=== PATIENT | male | born 2000 | race Hispanic/Latino ===

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

== ENCOUNTER 2022-06-02 23:15 | Emergency (ER) | payer OTHER, SELFPAY ==
[2022-06-02 23:24] VITALS: BP 121/66; PULSE 79; RESP 20; TEMP 37.1; O2SAT 98; BMI 22.4
--- NOTE | 2022-06-02 23:30 | DI.RAD.S_ITS ---
PROCEDURE: XR ELBOW LT MIN 3V INDICATIONS: fall TECHNIQUE: 3 views of the elbow were acquired. COMPARISON: None. FINDINGS: Bones: There is an impacted comminuted fracture of the radial head with possible corresponding fracture of the capitellum. There is mild posterior subluxation of the elbow joint. Soft tissues: An elbow joint effusion is present with limited evaluation due to suboptimal positioning. No suspicious soft tissue calcifications. IMPRESSION: 1. Comminuted impacted fracture of the radial head with possible corresponding capitellar fracture. 2. Posterior subluxation of the elbow joint. Dictated by: Mulugeta Farmer M.D. on 06/02/2022 at 23:58 Approved by: Mulugeta Farmer M.D. on 06/03/2022 at 0:00
--- NOTE | 2022-06-02 23:30 | DI.RAD.S_ITS ---
PROCEDURE: XR FOREARM LT 2V INDICATIONS: fall TECHNIQUE: 2 views of the forearm were acquired. COMPARISON: [facility], CR, XR ELBOW LT MIN 3V, 06/02/2022, 23:28. [facility], CR, XR FOREARM RT 2V, 10/02/2021, 14:23. FINDINGS: Bones: There is a comminuted impacted fracture of the radial head with possible associated impaction fracture of the capitellum. There is mild posterior subluxation of the elbow joint. No fracture of the distal radius or ulna. Soft tissues: No suspicious soft tissue calcifications or masses. IMPRESSION: 1. Comminuted impacted fracture of the radial head with possible associated impaction fracture of the capitellum. 2. Mild posterior subluxation of the elbow joint. Dictated by: Mulugeta Farmer M.D. on 06/03/2022 at 0:00 Approved by: Mulugeta Farmer M.D. on 06/03/2022 at 0:02
[2022-06-03] VITALS (7 sets, daily range): BP systolic 109–128; BP diastolic 61–83; PULSE 66–88; RESP 17–31; O2SAT 96–100
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
[2022-06-03] MEDS: propofoL 200 MG/20 ML VIAL 75 MG IV (04:36)
--- NOTE | 2022-06-03 04:44 | DI.RAD.S_ITS ---
PROCEDURE: XR ELBOW LT 2V INDICATIONS: post reduction TECHNIQUE: 2 views of the elbow were acquired. COMPARISON: [facility], , XR ELBOW LT MIN 3V, 06/02/2022, 23:28. FINDINGS: Bones: Intra-articular fracture of the radial head with mild displacement is present. Only oblique and lateral views are obtained. There is normal alignment of the ulna. IMPRESSION: Comminuted distal radial intra-articular fracture. There is good anatomic alignment of the ulna. Limited views are obtained. As clinically indicated, full x-ray series may be obtained. Dictated by: Helena Alas M.D. on 06/03/2022 at 8:51 Approved by: Helena Alas M.D. on 06/03/2022 at 8:54
[2022-06-03] MEDS: propofoL 200 MG/20 ML VIAL 50 MG IV (05:32)
--- NOTE | 2022-06-03 05:41 | PC.NURSE ---
Following reduction, splint, eneida wrap and sling applied to left arm. tolerated well
== END 2022-06-03 05:42 | disposition home or self-care (01) ==
PROVIDERS: Emergency Provider Emergency Medicine
DX: S52.102A Unspecified fracture of upper end of left radius, initial encounter for closed fracture (principal); W18.30XA Fall on same level, unspecified, initial encounter
CPT/HCPCS: 24655; 73070; 73080; 73090; 99152; 99284; J2704

== ENCOUNTER 2022-06-09 09:35 | Day surgery (SDC) | payer OTHER, SELFPAY ==
[2022-06-09] VITALS (14 sets, daily range): BP systolic 124–155; BP diastolic 73–104; PULSE 68–100; RESP 12–27; TEMP 36.4–37.7; O2SAT 97–100; BMI 23.4
[2022-06-09] MEDS: LACTATED RINGERS 1,000 ML 42 ML IV ×2 (12:04→16:33)
--- NOTE | 2022-06-09 14:05 | PM.PREOP ---
Pre-operative Note Interval Note History & Physical reviewed/Exam performed by Physician: Yes Changes to H&P: No
[2022-06-09] MEDS: CEFAZOLIN 2 GM/100 ML PREMIX 100 ML IV (14:34)
[2022-06-09] MEDS: BUPIVACAINE 0.5% (PF) 10 ML VIAL 30 ML INJ (15:07)
--- NOTE | 2022-06-09 15:54 | SUR.OPER ---
Supine on padded OR bed, head on pillow, right arm secured on padded arm boards at <90 degrees abduction, left arm draped on padded black hand table, legs uncrossed, safety belt at thigh, tape over blanket over lower legs.
[2022-06-09] MEDS: OXYCODONE IR 5 MG TABLET PO (16:33)
[2022-06-09] MEDS: ACETAMINOPHEN 325 MG TABLET 975 MG PO (16:33)
--- NOTE | 2022-06-09 16:36 | P.OP_ITS ---
Operative Date/Time/Diagnoses Date of procedure: 06/09/22 Time of procedure: 16:00 Pre-op diagnosis: Left radial head fracture, closed, displaced Post-op diagnosis: same Procedure & Clinicians Procedure: Open reduction internal fixation of left radial head fracture Same procedure as scheduled: Yes Indications: The patient is a 21-year-old young man who injured his left elbow with a fracture dislocation last weekend. His elbow was reduced in the emergency room but he had a displaced radial head fracture of a substantial fragment of the r adial head. Fixation was felt to be appropriate to prevent future instability. He agreed to surgery after discussion the risks benefits and alternatives. Risks discussed included but were not limited to: Failure to provide relief of pain or to improve function, need for later surgery, stiffness, infection, nerve damage, deep venous thrombosis, pulmonary embolism, stroke, myocardial infarction, permanent paralysis and . Surgeon: Brandon Leahy Click Yes if Unassisted: Yes Anesthesia Type: General and Local Operative Notes Findings: Comminuted displaced radial head fracture Closure Type: primary Prosthetic devices, grafts, tissues, transplants, or devices: 2 Synthes 2 mm mini fragment screws measuring 20 mm in length were used. Applied: implant(s) Estimated Blood Loss (mL): 10 Blood products transfused: none Tourniquet time (min): 53 Procedure in detail: The patient was seen in the preoperative area where he identified his left elbow as the operative site and this was marked with my initials. He was taken to the operating room and placed on the operating room table in the supine position. He underwent the induction of general anesthetic and received preoperative antibiotics. A tourniquet was placed about his proximal left arm. A full procedural pause or ?time-out? was performed. The arm was prepared for the fingertips to the tourniquet with ChloraPrep and draped through sterile drapes. The arm was elevated and exsanguinated with an Esmarch bandage, the tourniquet inflated to 250 mmHg. An approximately 5 cm incision was made overlying the lateral epicondyle of the elbow and carried distally in line with the fibers of the extensor muscles in the forearm. Subcutaneous flaps were elevated. The muscle fibers were divided in line with their pole and released from the distal humerus. The capsule was identified and opened. Care was taken not to extend the incision beyond the radial neck. The hematoma in the joint was evacuated. Clotted blood was cleaned out of the fracture site. There were 3 major fracture fragments, 1/2 of the radial head was attached to the shaft and the other half was split into approximately 1/3 and 2/3rd sections. Using a [place] elevator and manual manipulation of the fragments I was able to reduce them to a nearly anatomic position. A K-wire was used to hold the intact fragment to the larger of the 2 fractured fragments. A 20 mm screw was then placed to fixate this. A 2nd screw was then placed to back this up. The 1/3 fracture fragment piece was too small to hold a screw by itself. This was held in position by fixating the larger of the fragments. The wound was then irrigated copiously. The capsule was closed with interrupted 0 Vicryl, the muscle layer was closed with running and interrupted 0 Vicryl. Subcutaneous layer was closed with interrupted 3-0 Vicryl and the skin with a running 4-0 Monocryl and Steri-Strips. The subcutaneous tissues were injected with 7 mL 0.5% Marcaine with epinephrine for postoperative pain control. Prior to closure the tourniquet was deflated and hemostasis obtained with electrocautery. Total tourniquet time was 53 minutes. A dressing of sterile 4x4s, sterile cast padding, additional cast padding and a posterior splint were applied. After the splint had set, the patient's arm was placed in a sling and he was transported to the recovery room in good condition having tolerated the procedure well. Complications: none Post-operative Condition: stable Disposition: PACU Plan for aftercare: The patient will be maintained in the current splint for 2 weeks, until he is seen in follow-up. At that point he will be allowed to gently move his elbow to regain motion. If he shows signs of stiffness at his 1st follow-up he will be enrolled in occupational therapy. He will be discharged today. A prescription for oxycodone for pain relief has been called in to [facility] [place].
[2022-06-09] MEDS: HYDROMORPHONE 2 MG INJ IV ×2 (16:38→16:43)
[2022-06-09] MEDS: hydrOXYzine 50 MG/ML INJ 25 MG IM (16:51)
[2022-06-09] MEDS: MEPERIDINE 50 MG/ML INJ 12.5 MG IV ×2 (17:00→17:05)
== END 2022-06-09 17:55 | disposition home or self-care (01) ==
PROVIDERS: Referring Provider Orthopaedic Surgery; Visit Provider Orthopaedic Surgery
PROC: (CPT 24665; principal; 2022-06-09 13:00)
DX: S52.122A Displaced fracture of head of left radius, initial encounter for closed fracture (principal); W01.198A Fall on same level from slipping, tripping and stumbling with subsequent striking against other object, initial encounter; Y93.51 Activity, roller skating (inline) and skateboarding
CPT/HCPCS: 24665; J0690; J1100; J1170; J2175; J2250; J2405; J2704; J3010; J3410

== ENCOUNTER 2022-12-30 13:34 | Emergency (ER) | payer OTHER, SELFPAY ==
[2022-12-30 13:40] VITALS: BP 137/79; PULSE 82; RESP 16; TEMP 36.7; O2SAT 100; BMI 23.0
--- NOTE | 2022-12-30 13:47 | DI.US.S_ITS ---
PROCEDURE: US SCROTUM INDICATIONS: RIGHT TESTICLE/GROIN PAIN TECHNIQUE: Real-time scanning was performed of the scrotum and testicles, with image documentation. Color and pulse Doppler interrogation was performed of both testicles. COMPARISON: None. FINDINGS: Right: Testicle is normal in size at 4.5 x 3.4 x 2 3 cm, and homogenous in echotexture. Epididymis is normal in overall size and morphology. No hydrocele or varicoceles. Overlying scrotal skin is normal in thickness. Additional ultrasound scanning is performed at the right groin. No hernias are seen at the area pain. Left: Testicle is normal in size at 1.3 x 3.2 x 2 cm, and homogeneous in echotexture. Epididymis is normal in overall size and morphology. No hydrocele or varicoceles. Overlying scrotal skin is normal in thickness. Doppler: Color and pulse Doppler demonstrate normal and symmetric arterial flow in both testicles. IMPRESSION: No imaging explanation is found for this patient's presenting symptoms. Normal appearing testicles, without masses or abnormal vascularity. No significant groin abnormality is seen. No hernia. Dictated by: Earl Roblero M.D. on 12/30/2022 at 14:09 Approved by: Earl Roblero M.D. on 12/30/2022 at 14:10
[2022-12-30 15:28] LABS: Urine N gonorrhoeae NOT DETECTED
[2022-12-30 15:29] LABS: Urine Chlamydia NOT DETECTED
--- NOTE | 2022-12-30 16:00 | ED_ITS ---
HPI - Male Genitourinary General Chief complaint: Urogenital-Male Stated complaint: groin pain Time Seen by Provider: 12/30/22 15:57 Source: patient Mode of arrival: Ambulatory Limitations: no limitations History of Present Illness HPI Narrative: This is a 22-year-old male no reported medical issues with right groin starting in the right upper groin radiating down towards the testicle. Patient states been going on for about 3 days sort of waxes and wanes in intensity. He is taken Tylenol which has been helpful. He states is present slightly currently but improved. States no fevers, no chills, no nausea or vomiting. No abdominal back or flank pain. Patient states no dysuria, urgency, frequency or hematuria. No penile discharge. Patient states he is not sexually active. Patient denies any diarrhea or constipation black or bloody stools. He states he did notice a little bit of redness at the upper edge of the testicle. He does shave the suprapubic area but not the testicle itself. Patient states no other medical issues. No prior surgeries. He states he smokes some marijuana which was helpful. No tobacco, no alcohol regularly, no other recreational drugs or IV drugs. Not had any prior STIs or infections or similar symptoms in the past. Patient does not recall any trauma or other injuries that caused his symptoms. Related Data Previous Rx's Medication Instructions Recorded acetaminophen 325 mg tablet 650 mg (2 x 325 mg) PO Q6H PRN 06/09/22 Fever/Mild Pain (1-3) #250 tabs ibuprofen 600 mg tablet 600 mg PO Q6HR PRN Fever/Mild Pain 06/09/22 (1-3) #250 tabs oxycodone 5 mg tablet 5 mg PO Q4HR #30 tabs 06/09/22 Allergies Allergy/AdvReac Type Severity Reaction Status Date / Time No Known Drug Allergies Allergy Verified 12/30/22 13:40 Review of Systems Review of Systems ROS Unobtainable: All systems reviewed & are unremarkable except as noted in HPI and below Patient History Medical History (Updated 12/30/22 @ 16:19 by Holly Mitchell DO) No pertinent past medical history Social History household members: family Smoking Status: Never smoker alcohol intake: current Smoking Status: Never smoker alcohol intake frequency: holidays/special occasions only Substance Use Type: marijuana Exam Narrative Exam Narrative: GENERAL: Alert and oriented x three, male in mild distress HEENT: Head normocephalic, atraumatic, EOMI, pupils reactive, face symmetric, moist mucous membranes NECK: Supple, full range of motion CARDIOVASCULAR: Regular rate and rhythm without murmurs, rubs or gallops. RESPIRATORY: Breath sounds equal bilaterally, no wheezes rales or rhonchi. ABDOMEN: Soft, nontender. Normoactive bowel sounds all 4 quadrants. No guarding or rebound, rigidity, no mass : No CVA tenderness. Male: normal external examination, patient has shaved the suprapubic but not the testicle itself. No appreciable erythema or skin changes noted. No penile discharge or lesions, testicles non-tender, cremasteric reflex intact, no inguinal hernias noted. Father bedside during exam. EXTREMITIES: Normal range of motion, no clubbing or edema. Neurovascularly intact NEUROLOGICAL: Cranial nerves II through XII grossly intact. Moving all extremities SKIN: Warm, dry, no petechiae, no rashes or lesions. Initial Vital Signs Initial Vital Signs: Vital Signs Temperature 98.1 F 12/30/22 13:40 Pulse Rate 82 12/30/22 13:40 Respiratory Rate 16 12/30/22 13:40 Blood Pressure 137/79 12/30/22 13:40 Pulse Oximetry 100 12/30/22 13:40 Oxygen Delivery Method Room Air 12/30/22 13:40 Course Orders Ordered: ED Orders 12/30/22 13:47 US scrotum Stat 12/30/22 13:50 Chlamydia Gonorrhea PCR -URINE Stat Urine Microscopic Stat Vital Signs Vital signs: Vital Signs - 8 hr 12/30/22 13:40 12/30/22 16:31 Temperature 98.1 F Pulse Rate 82 68 Respiratory Rate 16 Blood Pressure 137/79 125/69 Pulse Oximetry 100 97 Oxygen Delivery Method Room Air Room Air MDM - Male Genitourinary Lab Data Labs: Lab Results 12/30/22 Range/Units 13:50 Urine RBC None seen (0-5/HPF) Urine WBC None seen (0-5/HPF) Ur Squamous Epith Cells None seen (0-5/HPF) Amorphous Sediment 4+ Urine Bacteria Occasional (0-1) (None) Urine Mucus 1+ H (Negative) Ur Culture Indicated? Cult not indicated Ur Chlamydia DNA (PCR) Not detected N gonorrhoeae DNA (PCR) Not detected Urine Dip Bedside Urine Glucose Negative Bedside Urine Bilirubin + 1 Bedside Urine Ketone - Negative Urine Specific [place] 1.020 Bedside Urine Occult Blood - Negative Bedside Urine pH 6.0 Bedside Urine Protein +/- 15 Bedside Urine Urobilinogen - Negative Bedside Urine Nitrite - Negative Bedside Urine Leukocytes - Negative Esterase Imaging Data scrotum US: Radiologist's Impression: Close Scrotum Ultrasound (Signed) [facility] - 12/30/22 Elbow X-Ray (Signed) [place] - 06/03/22 Forearm X-Ray (Signed) FarmerMulugeta resendiz - 06/02/22 Elbow X-Ray (Signed) FarmerM[facility]a resendiz - 06/02/22 Forearm X-Ray (Signed) Julissa Sandhu - 10/02/21 Wrist X-Ray (Signed) FarmerM[facility]a resendiz - 11/16/19 Ankle X-Ray (Signed) Antonio Benedict - 09/12/17 Tibia/Fibula X-Ray (Signed) Antonio Benedict - 09/12/17 Ankle X-Ray (Signed) Antonio Benedict - 09/12/17 [place] [address] Ultrasound Report Signed Patient: Ad Barron MR#: [id number] : 2000 Acct:[id number] Age/Sex: 22 / M Date of Service: 12/30/22 Loc: ED Accession Number: [id number] Procedure: US scrotum Ordering Provider: Holly Mitchell D.O. PROCEDURE: US SCROTUM INDICATIONS: RIGHT TESTICLE/GROIN PAIN TECHNIQUE: Real-time scanning was performed of the scrotum and testicles, with image documentation. Color and pulse Doppler interrogation was performed of both testicles. COMPARISON: None. FINDINGS: Right: Testicle is normal in size at 4.5 x 3.4 x 2 3 cm, and homogenous in echotexture. Epididymis is normal in overall size and morphology. No hydrocele or varicoceles. Overlying scrotal skin is normal in thickness. Additional ultrasound scanning is performed at the right groin. No hernias are seen at the area pain. Left: Testicle is normal in size at 1.3 x 3.2 x 2 cm, and homogeneous in echotexture. Epididymis is normal in overall size and morphology. No hydrocele or varicoceles. Overlying scrotal skin is normal in thickness. Doppler: Color and pulse Doppler demonstrate normal and symmetric arterial flow in both testicles. IMPRESSION: No imaging explanation is found for this patient's presenting symptoms. Normal appearing testicles, without masses or abnormal vascularity. No significant groin abnormality is seen. No hernia. Dictated by: Earl Roblero M.D. on 12/30/2022 at 14:09 Approved by: Earl Roblero M.D. on 12/30/2022 at 14:10 [facility] Narrative Medical decision making narrative: This is a 22-year-old male with complaint of right testicular pain started in the upper edge inguinal area. No hernias palpated, scrotal ultrasound is negative, urine GC is negative. Patient states he is not sexually active. Point of care urine shows no infection. No obvious signs of cellulitis or infection or abscess. Patient feels improved currently. Discussed signs and symptoms to watch for, suspicion for torsion is lower but discussed with patient individuals can towards ND torso if he has recurrent or increasing pain to represent for repeat ultrasound. Patient describes pain is [id number] and not severe. Patient and I discussed Tylenol/ibuprofen PRN for pain. Return if worsening symptoms with return precautions. Discharge Plan Departure Patient Disposition: Home Clinical Impression: Pain in right testicle Instructions: DI for Testicular Pain Activity Restrictions/Additional Instructions: Please follow-up for recheck if your symptoms are persisting but mild. You may take Tylenol up to a 1000 mg every 6 hours and/or ibuprofen up to 600 mg every 6 hours. Please return for increasing redness, swelling, recurrent or severe pain, difficulty, painful urination or bloody urination, fevers, vomiting, abdominal back or flank pain or other new or concerning changes. Prescriptions: No Action acetaminophen 325 mg Tablet 650 mg PO Q6H PRN (Reason: Fever/Mild Pain (1-3)) Qty: 250 0RF ibuprofen 600 mg Tablet 600 mg PO Q6HR PRN (Reason: Fever/Mild Pain (1-3)) Qty: 250 0RF oxycodone 5 mg Tablet 5 mg PO Q4HR Qty: 30 0RF Referrals: Provider,Kt ACOSTA [Primary Care Provider] - Luis Ibarra MD [Physician] - Stand Alone Forms: Patient Portal/API
[2022-12-30 16:30] LABS: Amorphous Sediment Urine 4+; Bacteria Urine Occasional (0-1); Culture Indicated Urine Cult Not Indicated; Mucus Urine 1+ (Negative); RBC Urine None Seen (0-5/HPF); Squamous Epithelial Cell Urine None Seen (0-5/HPF); WBC Urine None Seen (0-5/HPF)
[2022-12-30 16:31] VITALS: BP 125/69; PULSE 68; O2SAT 97
== END 2022-12-30 16:33 | disposition home or self-care (01) ==
PROVIDERS: Emergency Provider Emergency Medicine
DX: N50.811 Right testicular pain (principal)
CPT/HCPCS: 76870; 81003; 81015; 87491; 87591; 93975; 99283

== ENCOUNTER 2024-08-13 14:12 | Emergency (ER) | payer MEDICAID, OTHER, SELFPAY ==
[2024-08-13 14:33] VITALS: BP 129/77; PULSE 59; RESP 18; TEMP 36.6; O2SAT 100; BMI 23.0
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
--- NOTE | 2024-08-13 15:31 | DI.US.S_ITS ---
PROCEDURE: US SCROTUM INDICATIONS: LEFT TESTICULAR PAIN TECHNIQUE: Real-time scanning was performed of the scrotum and testicles, with image documentation. Color and pulse Doppler interrogation was performed of both testicles. COMPARISON: [facility], , US SCROTUM, 12/30/2022, 14:20. FINDINGS: Right: Testicle is normal in size at 4.5 x 3.0 x 2.7 cm. Mildly hypoechoic shadowing region in the right testicle possibly related to testicular contusion without fracture seen. Epididymis is normal in overall size and morphology. No hydrocele or varicoceles. Overlying scrotal skin is normal in thickness. Left: Testicle is normal in size at 4.6 x 3.4 x 2.5 cm, and homogeneous in echotexture. Epididymis is normal in overall size and morphology. No hydrocele or varicoceles. Overlying scrotal skin is normal in thickness. Doppler: Color and pulse Doppler demonstrate normal and symmetric arterial flow in both testicles. IMPRESSION: 1. Normal appearance of the left testicle. 2. Mildly heterogeneous appearance of the right testicle with shadowing, possibly related to a mild contusion without rupture. No signs of torsion or epididymitis. Approved by: Feliz Red M.D. on 08/13/2024 at 17:01
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
[2024-08-13 18:07] VITALS: BP 132/76; PULSE 58; RESP 16; TEMP 36.7; O2SAT 99
== END 2024-08-13 18:11 | disposition home or self-care (01) ==
PROVIDERS: Emergency Provider Student in an Organized Health Care Education/Training Program
DX: N50.82 Scrotal pain (principal)
CPT/HCPCS: 76870; 81003; 93975; 99281; 99283